=== PATIENT | male | born 1985 | race Caucasian/White ===

== ENCOUNTER → 2016-06-14 | Outpatient (CLI) | payer BC ==
[~2016-06-14] MED LIST: CHOL2000 PO; GLUC1CAP35 PO; INSDGI SC; NVLGI/PEN SC
[2016-06-15 08:15] LABS: ESTIMATED AVERAGE GLUCOSE 140 mg/dl; HA1C FLAG Normal (Normal)
[2016-06-22 23:39] LABS: IGA SERUM 157 mg/dL (81-463); TIS TRANS IGA >100 U/mL (<4)
[2016-06-23 10:07] LABS: ENDOMYSIAL IGA AB TC 15064 Positive (Negative)
== END | disposition home or self-care (01) ==
LOC: C.LAB 17:55
PROVIDERS: ATTEND Internal Medicine Endocrinology, Diabetes & Metabolism
DX: E10.9 Type 1 diabetes mellitus without complications (principal); E83.51 Hypocalcemia

== ENCOUNTER → 2016-07-03 | Day surgery (SDC) | payer BC ==
[2016-06-29 08:21] VITALS: Ht 182.9 cm; Wt 84.1 kg
[~2016-07-03] VITALS: Ht 182.9 cm; Wt 84.1 kg
[~2016-07-03] MED LIST changes: +LIDOCAINE HCL 2% 2 ML VIAL (20MG/ML) ONE; +MIDAZOLAM HCL 1 MG/ML 2ML VIAL ONE; +PROPOFOL IV EMULSION 10 MG/ML 20 ML VIAL IV ONE
--- NOTE | 2016-07-03 15:38 | Endo History and Physical ---
History & Physical Date of Service: July 03, 2016. Chief Complaint: POSITIVE CELIAC'S ANTIBODIES Referring Physician: DR. HOLDEN History of Present Illness 31 yo CM who presents for EGD secondary to positive celiac antibody testing. Past Surgical History Hx Cardiac Surgery: No Hx Internal Defibrillator: No Hx Pacemaker: No Hx Abdominal Surgery: No Hx of Implantable Prosthesis: No Hx Post-Op Nausea and Vomiting: No Hx Cancer Surgery: No Hx Thoracic Surgery: No Hx Orthopedic: Yes (LEFT ACL REPAIR) Hx Urinary Tract Surgery: No Family History None Social History Smoking Status: Never Smoker Hx Substance Use: No Hx Alcohol Use: Yes (OCCASIONALLY) Allergies Coded Allergies: No Known Allergies (Verified , 07/03/16) Current Medications Reported Home Medications Medications Dose Route/Sig Max Daily Dose Days Date Category Dose Instructions Glucosamine Chondroitin (Lpdgjdzpfuj-Qdrnakqytro-Lxf C-) 1 Cap Cap 1 Cap PO HS 06/29/16 Reported Vitamin D3 (Cholecalciferol) 2,000 Unit Cap 2 Cap PO HS 90 06/29/16 Reported Novolog Flexpen (Insulin Aspart) 100 Units/Ml Inj 6 Units SC QPM 06/29/16 Reported WILL ADJUST PER BLOOD SUGAR NUMBERS Lantus (Insulin Glargine) 100 Unit/Ml Inj 18 Units SC HS 06/29/16 Reported Vital Signs Weight (Kilograms): 84.09 Height (Feet): 6 Height (Inches): 0 Date Time Temp Pulse Resp B/P Pulse Ox O2 Delivery O2 Flow Rate FiO2 07/03/16 14:35 37.2 74 20 123/62 97 Physical Exam General Appearance: WD/WN, no apparent distress Respiratory/Chest: Auscultation: breath sounds normal Cardiovascular: Heart Auscultation: RRR Abdomen: Bowel Sounds: normal Inspection & Palpation: soft, non-distended, no tenderness, guarding & rebound Assessment and Plan Assessment: 31 yo CM who presents for EGD secondary to positive celiac antibody testing. Plan: Proceed with EGD.
--- NOTE | 2016-07-03 16:06 | GI REPORT ---
Procedure Date: 07/03/2016 3:35 PM Procedure: Upper GI endoscopy Indications: Positive celiac serologies Medicines: Monitored Anesthesia Care Complications: No immediate complications. Estimated Blood Loss: Estimated blood loss: none. Procedure: Pre-Anesthesia Assessment: - Prior to the procedure, a History and Physical was performed, and patient medications and allergies were reviewed. The patient's tolerance of previous anesthesia was also reviewed. The risks and benefits of the procedure and the sedation options and risks were discussed with the patient. All questions were answered, and informed consent was obtained. Prior Anticoagulants: The patient has taken no previous anticoagulant or antiplatelet agents. ASA Grade Assessment: II - A patient with mild systemic disease. After reviewing the risks and benefits, the patient was deemed in satisfactory condition to undergo the procedure. After obtaining informed consent, the endoscope was passed under direct vision. Throughout the procedure, the patient's blood pressure, pulse, and oxygen saturations were monitored continuously. The scope was introduced through the mouth, and advanced to the second part of duodenum. The upper GI endoscopy was accomplished without difficulty. The patient tolerated the procedure well. Findings: The examined esophagus was normal. The entire examined stomach was normal. Biopsies were taken with a cold forceps for Helicobacter pylori testing. Decreased folds were found in the 2nd part of the duodenum. Biopsies were taken with a cold forceps for histology. Impression: - Normal esophagus. - Normal stomach. Biopsied. - Duodenal mucosal changes seen, suspicious for celiac disease. Biopsied. Recommendation: - Resume previous diet. - Continue present medications. - Await pathology results. - Return to GI office as previously scheduled. Arnulfo Moreno DO 07/03/2016 4:05:11 PM This report has been signed electronically. Note Initiated On: 07/03/2016 3:35 PM I attest to the content of the Intraoperative Record and orders documented therein, exceptions below
--- NOTE | 2016-07-03 16:08 | Discharge Instructions ---
Endoscopy Patient Instructions Date / Procedure(s) Performed July 03, 2016. EGD Allergy Information Coded Allergies: No Known Allergies (Verified , 07/03/16) Discharge Date / Findings July 03, 2016. Biopsies of gastric antrum and duodenum Medication Instructions Stopped Medication(s): LANTUS INSULIN-LAST 07/01/16 OK to resume all medications today as prescribed Reported Home Medications Medications Dose Route/Sig Max Daily Dose Days Date Category Dose Instructions Glucosamine Chondroitin (Qalymjjuokl-Nqsewzpanql-Zat C-) 1 Cap Cap 1 Cap PO HS 06/29/16 Reported Vitamin D3 (Cholecalciferol) 2,000 Unit Cap 2 Cap PO HS 90 06/29/16 Reported Novolog Flexpen (Insulin Aspart) 100 Units/Ml Inj 6 Units SC QPM 06/29/16 Reported WILL ADJUST PER BLOOD SUGAR NUMBERS Lantus (Insulin Glargine) 100 Unit/Ml Inj 18 Units SC HS 06/29/16 Reported Provider Instructions Activity Restrictions - No exercising or heavy lifting for 24 hours. - Do not drink alcohol the day of the procedure. - Do not drive a car or operate machinery until the day after the procedure. - Do not make any important decisions or sign important papers in 24 hours after the procedure. Following Day: - Return to full activity which may include returning to work/school. Diet Start your diet with liquids and light foods (jello, soup, juice, toast). Then eat your usual diet if not nauseated. Treatment For Common After Affects For mild abdominal pain, bloating, or excessive gas: - Rest - Eat lightly - Lie on right side Follow-Up Information Follow-up with DR. HOLDEN as scheduled Anesthesia Information What You Should Know You have had a procedure that required some medicine to reduce anxiety and discomfort. This treatment is called moderate sedation. After receiving the treatment, you may be sleepy, but you will be able to breathe on your own. The effects of the treatment may last for several hours. Follow these instructions along with Activity/Diet recommendations noted above: * Do NOT do anything where dizziness or clumsiness would be dangerous. * Rest quietly at home today, then you can be up and about tomorrow. * Have a responsible person stay with you the rest of today. * You may have had an I.V. today. If so, you may take the dressing off later today. Recommendations Call your doctor if: * Trouble breathing * Continuous vomiting for more than 24 hours * Temperature above 101 degrees * Severe abdominal pain or bloating * Pain not relieved by pain medicine ordered * There is increased drainage or redness from any incision * A large amount of rectal bleeding greater than 2-3 tablespoons. (If you had a polyp/s removed or have hemorrhoids, a small amount of blood - from the rectum is to be expected.) * You have any unanswered questions or concerns. IN THE EVENT OF A SERIOUS EMERGENCY, GO TO THE NEAREST EMERGENCY ROOM Your discharge instructions were prepared by provider Arnulfo Moreno. Patient Instructions Signature Page Bogdan Larson Patient (or Guardian) Signature/Date: I have read and understand the instructions given to me by my caregivers. Caregiver/RN/Doctor Signature/Date: The above-named patient and/or guardian has received patient instructions on this date. + Original Patient Signature Page (only) stays with chart. Please make copy for patient.
--- NOTE | 2016-07-03 16:16 | Anesthesiology Progress Note ---
Anesthesia Post Op Note Date & Time July 03, 2016 at 16:16 Vital Signs Pain Intensity: 0 Vital Signs Past 12 Hours Date Time Temp Pulse Resp B/P Pulse Ox O2 Delivery O2 Flow Rate FiO2 07/03/16 16:05 76 20 111/58 99 Room Air 76 07/03/16 14:35 37.2 74 20 123/62 97 Notes Mental Status: alert / awake / arousable, participated in evaluation Pt Amnestic to Procedure: Yes Nausea / Vomiting: adequately controlled Pain: adequately controlled Airway Patency, RR, SpO2: stable & adequate BP & HR: stable & adequate Hydration State: stable & adequate Anesthetic Complications: no major complications apparent
[2016-07-03 16:34] VITALS: BP 114/69; PULSE 58; O2SAT 100
== END | disposition home or self-care (01) ==
LOC: C.GI 14:04
PROVIDERS: ATTEND Internal Medicine
DX: R79.89 Other specified abnormal findings of blood chemistry (principal); K29.50 Unspecified chronic gastritis without bleeding; E10.9 Type 1 diabetes mellitus without complications; G62.9 Polyneuropathy, unspecified

== ENCOUNTER → 2016-09-25 | Outpatient (CLI) | payer BC ==
[~2016-09-25] MED LIST changes: -LIDOCAINE HCL 2% 2 ML VIAL (20MG/ML) ONE; -MIDAZOLAM HCL 1 MG/ML 2ML VIAL ONE; -PROPOFOL IV EMULSION 10 MG/ML 20 ML VIAL IV ONE
[2016-09-25 17:05] LABS: ALT/SGPT 35 U/L (12-78); AST/SGOT 19 U/L (15-37); BLOOD UREA NITROGEN 14 mg/dl (7-18); BUN/CREATININE RATIO 15.2 (10-20); CALCIUM 8.7 mg/dl (8.5-10.1); CARBON DIOXIDE 28 mmol/L (21-32); CHLORIDE 106 mmol/L (98-107); CHOLESTEROL 198 mg/dl (0-200); CREATININE 0.93 mg/dl (0.60-1.40); GLUCOSE 99 mg/dl (70-99); SODIUM 140 mmol/L (136-145); TRIGLYCERIDES 180 mg/dl (0-150); VERY LOW DENSITY LIPOPROT CALC 36 mg/dl
[2016-09-25 17:13] LABS: ALB/GLOB RATIO 1.2 (0.9-2); ALKALINE PHOSPHATASE 38 U/L (45-117); FERRITIN 94.9 ng/ml (8.0-388.0); HDL CHOLESTEROL 67 mg/dl; LDL CHOLESTEROL CALCULATED 95 mg/dl; THYROID STIMULATING HORMONE 0.387 uIu/ml (0.300-4.500); TOTAL IRON BINDING CAPACITY 265 mcg/dl (250-450)
[2016-09-26 06:52] LABS: ESTIMATED AVERAGE GLUCOSE 134 mg/dl; HA1C FLAG Normal (Normal)
== END | disposition home or self-care (01) ==
LOC: C.LAB1850 15:54
PROVIDERS: ATTEND Internal Medicine Endocrinology, Diabetes & Metabolism
DX: K90.0 Celiac disease (principal); E10.9 Type 1 diabetes mellitus without complications

== ENCOUNTER → 2017-01-26 | Outpatient (CLI) | payer BC ==
[2017-01-26 15:48] LABS: ALT/SGPT 31 U/L (12-78); BLOOD UREA NITROGEN 16 mg/dl (7-18); BUN/CREATININE RATIO 16.9 (10-20); CALCIUM 8.7 mg/dl (8.5-10.1); CARBON DIOXIDE 27 mmol/L (21-32); CHLORIDE 105 mmol/L (98-107); CREATININE 0.96 mg/dl (0.60-1.40); GLUCOSE 146 mg/dl (70-99); POTASSIUM 3.9 mmol/L (3.5-5.1); SODIUM 139 mmol/L (136-145)
[2017-01-26 15:51] LABS: ALB/GLOB RATIO 1.2 (0.9-2); ALKALINE PHOSPHATASE 45 U/L (45-117); AST/SGOT 16 U/L (15-37)
[2017-01-27 07:32] LABS: ESTIMATED AVERAGE GLUCOSE 131 mg/dl; HA1C FLAG Normal (Normal)
== END | disposition home or self-care (01) ==
LOC: C.LAB 14:04
PROVIDERS: ATTEND Registered Nurse
DX: E10.9 Type 1 diabetes mellitus without complications (principal); E83.51 Hypocalcemia; K90.0 Celiac disease

== ENCOUNTER → 2017-10-02 | Outpatient (CLI) | payer BC ==
[2017-10-02 12:38] LABS: HEMOGLOBIN A1C 6.5 % (4.5-5.6)
[2017-10-02 12:46] LABS: ALBUMIN 3.9 gm/dl (3.4-5.0); ALKALINE PHOSPHATASE 40 U/L (45-117); ALT/SGPT 30 U/L (12-78); AST/SGOT 16 U/L (15-37); BLOOD UREA NITROGEN 15 mg/dl (7-18); CALCIUM 8.2 mg/dl (8.5-10.1); CARBON DIOXIDE 26 mmol/L (21-32); CHOLESTEROL 193 mg/dl (0-200); CREATININE 0.95 mg/dl (0.60-1.40); GLUCOSE 123 mg/dl (70-99); LDL CHOLESTEROL CALCULATED 120 mg/dl; POTASSIUM 4.2 mmol/L (3.5-5.1); SODIUM 139 mmol/L (136-145); TOTAL PROTEIN 7.3 gm/dl (6.4-8.2)
== END | disposition home or self-care (01) ==
LOC: C.LAB1850 10:05
PROVIDERS: ATTEND Internal Medicine Endocrinology, Diabetes & Metabolism
DX: K90.0 Celiac disease (principal); E10.9 Type 1 diabetes mellitus without complications; E55.9 Vitamin D deficiency, unspecified